=== PATIENT | male | born 1950 | race Two or more races ===

== ENCOUNTER 2024-08-04 16:38 | Emergency (ER) | payer OTHER ==
[~2024-08-04] VITALS: Ht 195.6 cm; Wt 95.0 kg
[2024-08-04 17:06] LABS: Basophils # (auto) 0 10 ^3/uL (0-0.2); Basophils % (auto) 0.3 % (0.0-2.0); Eosinophils # (auto) 0 10 ^3/uL (0-0.8); Hematocrit 43.6 % (41.0-53.0); Hemoglobin 15.1 g/dL (13.5-17.5); Lymphocytes # (auto) 0.4 10 ^3/uL (0.4-5.4); Mean Corpuscular Hemoglobin 32.4 pg (28.0-32.0); Mean Corpuscular Hgb Conc. 34.5 g/dL (32.0-36.0); Mean Corpuscular Volume 93.8 fL (80.0-100.0); Monocytes # (auto) 0.5 10 ^3/uL (0-1.3); Neutrophils # (auto) 7.2 10 ^3/uL (1.6-8.6); Neutrophils % (auto) 88.7 % (37.0-80.0); Platelet Count (auto) 151 10^3/uL (140-450); Red Blood Cells 4.65 10^6/uL (4.5-5.90); Red Cell Distribution Width 13.7 % (11.8-14.3); White Blood Cell 8.1 10^3/uL (4.4-10.8)
[2024-08-04 17:14] LABS: Chloride 104 mmol/L (98-107); Potassium 4.4 mmol/L (3.5-5.1); Sodium 136 mmol/L (136-145)
--- NOTE | 2024-08-04 17:14 | ED.PDOC ---
HPI (NEURO) HPI Comments 73y M who presents to the ED via EMS for chief complaint of dizziness. Pt states he got up and states he suddenly felt dizzy and fell to the floor, falling on his R hip. Pt states he did not lose consciousness but states he has been having dizziness since. Pt states he is unable to move the R side of his hip, rating the pain 10/10, with no associated exacerbating or relieving factors. Pt otherwise denies chest pain, shorntess of breath, headache, nasuea, vomiting, fever, cough, or chills. Pt is alert and oriented x 4 and able to answer all questions. Pt otherwise denies any other symptoms at this time. Chief Complaint: Dizziness Time Seen by MD: 17:09 Reviewed Notes: Nurses Notes, Asp Developer Notes, Medications, Allergies (No allergies to medications) Information Source: Patient, Emergency Med Personnel Mode of Arrival: EMS Brought in by: EMS Severity: Moderate Dizziness/Weakness Severity: Unable to do activities Headache Severity: Moderate Timing: Hours Duration: Since onset Prehospital treatment: None Weakness Location: (L) Sided Onset: At rest Circumstances: Spontaneous Symptoms: Near syncope, Weakness History of: None Modifying factors: Other Associated Signs and Symptoms: Other (dizziness) Past Medical History PAST MEDICAL HISTORY: Denies Surgical History (Other): TURP Family History Family History: Family hx of DM Social History Smoker: Cigarettes Alcohol: Denies ETOH Use Drugs: Denies Drug Use Lives In: Home Constitutional: reports: weakness; denies: chills, diaphoresis, fatigue, fever, malaise, sweats, others EENTM: denies: blurred vision, double vision, ear bleeding, ear discharge, ear drainage, ear pain, ear ringing, eye pain, eye redness, hearing loss, mouth pain, mouth swelling, nasal discharge, nose bleeding, nose congestion, nose pain, photophobia, tearing, throat pain, throat swelling, voice changes, others Respiratory: denies: cough, hemoptysis, orthopnea, SOB at rest, shortness of breath, SOB with excertion, stridor, wheezing, others Cardiovascular: denies: chest pain, dizzy spells, diaphoresis, Dyspnea on ex ertion, edema, irregular heart beat, left arm pain, lightheadedness, palpitations, PND, syncope, others Gastrointestinal: denies: abdomen distended, abdominal pain, blood streaked bowels, constipated, diarrhea, dysphagia, difficulty swallowing, hematemesis, melena, nausea, poor appetite, poor fluid intake, rectal bleeding, rectal pain, vomiting, others Genitourinary: denies: burning, dysuria, flank pain, frequency, hematuria, incontinence, penile discharge, penile sore, pain, testicle pain, testicle swelling, urgency, others Neurological: reports: dizziness; denies: fainting, headache, left sided numbness, left sided weakness, numbness, paresthesia, pre-existing deficit, r ight sided numbness, right sided weakness, seizure, speech problems, tingling, tremors, weakness, others Musculoskeletal: reports: joint pain (L hip pain); denies: back pain, gout, joint swelling, muscle pain, muscle stiffness, neck pain, others Integumetry: denies: bruises, change in color, change in hair/nails, dryness, laceration, lesions, lumps, rash, wounds, others Allergic/Immunocompromised: denies: Difficulty Healing, Frequent Infections, Hives, Itching, others Hematologic/Lymphatic: denies: anemia, blood clots, easy bleeding, easy bruising, swollen glands, others Endocrine: denies: excessive hunger, excessive sweating, excessive thirst, excessive urination, flushing, intolerance to cold, intolerance to heat, unexplained weight gain, unexplained weight loss, others Psychiatric: denies: anxiety, bipolar disorder, depression, hopeless, panic disorder, schizophrenia, sleepless, suicidal, others All Other Systems: Reviewed and Negative Physical Exam General Appearance: Moderate Distress HEENT: Normal ENT Inspection, Pharynx Normal, TMs Normal Neck: Full Range of Motion, Non-Tender, Normal, Normal Inspection Respiratory: Chest Non-Tender, Lungs Clear, No Accessory Muscle Use, No Respiratory Distress, Normal Breath Sounds Cardiovascular: No Edema, No JVD, No Murmur, No Gallop, Normal Peripheral Pulses, Regular Rate/Rhythm Breast Exam: Deferred Gastrointestinal: No Organomegaly, Non Tender, No Pulsatile Mass, Normal Bowel Sounds, Soft Genitalia: Deferred Pelvic: Deferred Rectal: Deferred Extremities: No calf tenderness, Normal capillary refill, No pedal edema Musculoskeletal : Location: Right Extremity Location: Hip Apperance: Deformity, Limited ROM, Tenderness: Moderate Neurologic: Alert, rack cleaner II-XII nml as Tested, No Motor Deficits, Normal Affect, Normal Mood, No Sensory Deficits Cerebellar Function: Normal Reflexes: Normal Skin: Dry, Normal Color, Warm Lymphatic: No Adenopathy EKG EKG : Pulse Rate (adult): 70 Gordon: Normal Cardiac Rhythm: NSR Block: LBBB Hypertrophy: None ST: Normal Was a procedure done? Was a procedure done?: No Differential Diagnosis (SZ) Seizure: N/A General Weakness: Anemia, CVA, Dehydration, Electrolyte imbalance, Hypoglycemia, Hypotension, Hypovolemia, TIA, Vertigo: central, Vertigo: peripheral, Other (R hip fracture, contusion, ) X-Ray, Labs, Meds, VS Vital Signs Date Time Temp Pulse Resp B/P (MAP) Pulse Ox O2 Delivery O2 Flow Rate FiO2 08/04/24 18:30 100.0 65 19 130/72 (91) 95 100.0 08/04/24 17:37 70 08/04/24 17:05 70 08/04/24 16:38 100.0 86 15 153/87 (109) 98 08/04/24 16:38 100.0 86 15 153/87 (109) 98 100.0 Lab Test 08/04/24 16:50 Range/Units White Blood Count 8.1 4.4-10.8 10^3/uL Red Blood Count 4.65 4.5-5.90 10^6/uL Hemoglobin 15.1 13.5-17.5 g/dL Hematocrit 43.6 41.0-53.0 % Mean Corpuscular Volume 93.8 80.0-100.0 fL Mean Corpuscular Hemoglobin 32.4 H 28.0-32.0 pg Mean Corpuscular Hemoglobin Concent 34.5 32.0-36.0 g/dL Red Cell Distribution Width 13.7 11.8-14.3 % Platelet Count 151 140-450 10^3/uL Mean Platelet Volume 9.1 6.9-10.8 fL Neutrophils (%) (Auto) 88.7 H 37.0-80.0 % Lymphocytes (%) (Auto) 5.0 L 10.0-50.0 % Monocytes (%) (Auto) 6.0 0.0-12.0 % Eosinophils (%) (Auto) 0.0 0.0-7.0 % Basophils (%) (Auto) 0.3 0.0-2.0 % Neutrophils # (Auto) 7.2 1.6-8.6 10 ^3/uL Lymphocytes # (Auto) 0.4 0.4-5.4 10 ^3/uL Monocytes # (Auto) 0.5 0-1.3 10 ^3/uL Eosinophils # (Auto) 0 0-0.8 10 ^3/uL Basophils # (Auto) 0 0-0.2 10 ^3/uL Nucleated Red Blood Cells 0.0 % Sodium Level 136 136-145 mmol/L Potassium Level 4.4 3.5-5.1 mmol/L Chloride Level 104 98-107 mmol/L Carbon Dioxide Level 26 20-31 mmol/L Anion Gap 6 5-15 Blood Urea Nitrogen 23 9-23 mg/dL Creatinine 1.18 0.700-1.30 mg/dL Glomerular Filtration Rate Calc 65 >90 mL/min BUN/Creatinine Ratio 19.5 10.0-20.0 Serum Glucose 108 H 74-106 mg/dL Calcium Level 9.8 8.7-10.4 mg/dL PROCEDURE(s): RHIP - R HIP COMPLETE XRAY FINDINGS/IMPRESSION: There is acute impacted right femoral neck fracture Mild degenerative changes bilateral hips. Phleboliths are noted within the pelvis. There is suggestion of large amount of fecal material within the rectum. IV Hep-Lock was established The CBC and chemistry panel are within normal limits The patient was being admitted at this time An orthopedic surgery consult will be obtained. Images Reviewed?: Images reviewed and evaluated by me Time of 1ST Reevaluation: 17:40 Reevaluation 1ST: Unchanged Patient Education/Counseling: Diagnosis, Treatment, Prognosis Family Education/Counseling: No Family Present Additional Information - I reviewed the following notes from patient's past medical encounters: - The following tests were ordered, and results were reviewed by me: CBC, BMP, UA, EKGx1, R hip complete R x-ray - Additional information was gathered from interviewing the following independent Historian: EMS - I reviewed and agreed with the following test results read by other provider: radiologist - I discussed treatments and results with medical personnel and: patient Departure 1 Departure Time of Disposition: 19:12 Impression: Primary Impression: Fecal impaction Additional Impressions: Closed right hip fracture Qualified Codes: S72.001A - Fracture of unspecified part of neck of right femur, initial encounter for closed fracture History of fall Generalized weakness Disposition: 09 ADMITTED INPATIENT Admit to: Med Surg Condition: Fair Critical Care Note Critical Care Time?: No Stability Stability form required: Yes Unstable for transfer: ED Physician Assesment (Clinical assesment) Heart Score Heart Score: Heart Score Response (Comments) Value History N/A 0 EKG N/A 0 Age N/A 0 Risk Factors N/A 0 Troponin N/A 0 Total 0 I personally scribed for BRIANNE JONES MD ([email or web address]) on 08/04/24 at 17:14. Electronically submitted by Kirsten Martinez ([email or web address]). I personally scribed for BRIANNE JONES MD ([email or web address]) on 08/04/24 at 17:37. Electronically submitted by Kirsten Martinez ([email or web address]). I personally scribed for BRIANNE JONES MD ([email or web address]) on 08/04/24 at 18:55. Electronically submitted by Kirsten Martinez ([email or web address]). BRIANNE JONES MD Aug 04, 2024 17:14
[2024-08-04 17:15] LABS: Anion Gap 6 (5-15); Carbon Dioxide 26 mmol/L (20-31)
[2024-08-04 17:16] LABS: Calcium 9.8 mg/dL (8.7-10.4)
[2024-08-04 17:20] LABS: BUN/Creatinine Ratio 19.5 (10.0-20.0); Blood Urea Nitrogen 23 mg/dL (9-23)
[2024-08-04 17:21] LABS: Glucose 108 mg/dL (74-106)
[2024-08-04 18:31] VITALS: PULSE 66; RESP 19; O2SAT 95
--- NOTE | 2024-08-04 18:51 | DVH ---
CLINICAL INDICATION: FALL TECHNIQUE: 3 radiographic views of the pelvis and right hip were obtained. Comparison: None FINDINGS/IMPRESSION: There is acute impacted right femoral neck fracture Mild degenerative changes bilateral hips. Phleboliths are noted within the pelvis. There is suggestion of large amount of fecal material within the rectum.
[2024-08-04] MEDS: ONDANSETRON HCL 4 MG/2 ML VIAL IV ONE (20:12)
[2024-08-04] MEDS: MORPHINE SULFATE 4 MG/ML SYR/VIAL IV ONE (20:12)
[2024-08-04 20:20] VITALS: PULSE 66; RESP 19; O2SAT 95
[2024-08-04] MEDS ORDERED: ONDANSETRON HCL 4 MG/2 ML VIAL IV ONE (21:30)
[2024-08-04] MEDS ORDERED: HYDROMORPHONE HCL 1 MG/ML INJ IV ONE (21:30)
[2024-08-04 22:51] VITALS: BP 126/66; PULSE 66; RESP 15; TEMP 98.7; O2SAT 90
--- NOTE | 2024-08-08 15:19 | ECG ---
[facility] Test Date: 2024-08-04 Test Time: 17:00:28 Pat Name: WILLI IZAGUIRRE Department: ED Room: Gender: M Manager Entry: TAYO : 1950 Requested By: BRIANNE JONES Order Number: [id number] Reading MD: Measurements Intervals [place] Rate: 70 P: 26 OR: 165 QRS: -88 QRSD: 168 T: 27 QT: 443 QTc: 479 Interpretive Statements Sinus rhythm RBBB and LAFB Please click the below link to view image of tracing.
== END 2024-08-04 22:50 | disposition admitted as inpatient to this hospital (09) ==
LOC: EDBD 16:38 → ER 16:38
DX: S72.001A Fracture of unspecified part of neck of right femur, initial encounter for closed fracture (principal); K56.41 Fecal impaction; R53.1 Weakness; F17.210 Nicotine dependence, cigarettes, uncomplicated; Z98.890 Other specified postprocedural states; W18.39XA Other fall on same level, initial encounter; Y93.89 Activity, other specified; Y92.89 Other specified places as the place of occurrence of the external cause; Y99.8 Other external cause status
CPT/HCPCS: 36415; 73502; 80048; 85025; 93005; 96374; 96375; 99285; J2270; J2405